=== PATIENT | male | born 1940 | race Caucasian/White ===

== ENCOUNTER 2024-07-29 07:49 | Day surgery (SDC) | payer MEDICARE, SELFPAY ==
[2024-07-17 12:38] VITALS: BMI 28.4
[2024-07-17 13:10] LABS: % Basophils 1.1 % (0-2); % Immature Granulocytes 0.4 % (0-0.5); % Lymphocytes 14.2 % (20.5-51.1); % Monocytes 15.7 % (1.7-9.3); % Neutrophils 66.6 % (42.2-75.2); Absolute Basophils 0.1 10^3/uL (0-0.2); Absolute Eosinophils 0.2 10^3/uL (0-0.7); Absolute Lymphocytes 1.6 10^3/uL (1.2-3.4); Absolute Monocytes 1.7 10^3/uL (0.1-0.6); Absolute Neutrophils 7.3 10^3/uL (1.4-6.5); Hematocrit 43.8 % (39.0-52.0); Hemoglobin 13.9 g/dL (13.0-18.0); Mean Corp Hgb Conc. 31.7 g/dL (33.0-37.0); Mean Corpuscular Volume 91.3 fL (80.0-94.0); Mean Platelet Volume 9.8 fL (7.4-10.4); Nucleated Red Blood Cells % 0 % (-); Platelet Count 209 10^3/uL (130-400); Red Cell Dist. Width 15.9 % (11.5-14.5)
[2024-07-17 13:21] LABS: ALT (SGPT) 19 U/L (0-50); AST (SGOT) 17 U/L (17-59); Albumin 3.8 g/dl (3.5-5.0); Alkaline Phosphatase 72 U/L (38-126); Blood Urea Nitrogen 18 mg/dl (9-20); Calcium 8.8 mg/dl (8.4-10.2); Carbon Dioxide 29 mmol/L (22-30); Chloride 101 mmol/L (98-107); Estimated Creatinine Clearance 72 ml/min; Glucose 103 mg/dl (70-99); Magnesium 2.2 mg/dl (1.6-2.3); Potassium 4.3 mmol/L (3.5-5.1); Sodium 137 mmol/L (135-145); Total Bilirubin 0.8 mg/dl (0.2-1.3); Total Protein 6.3 g/dl (6.3-8.2); eGFR > 60.00
[2024-07-17 13:22] LABS: INR 1.19; PT 15.4 Sec (11.4-14.6)
[2024-07-29] VITALS (18 sets, daily range): BP systolic 92–132; BP diastolic 62–98
[2024-07-29] MEDS: NSS 500 IV (08:23)
[2024-07-29] MEDS: PROSCAR 5 MG PO (08:47)
--- NOTE | 2024-07-29 08:56 | ITS.CL.ABL ---
[facility] - Ablation
Ablation
Procedure Report:
Primary Back Hoe Operator: Dr. Dominic Daley
Procedure Date: 07/29/2024
Patient History:
Patient is a pleasant 84-year-old male with past medical history significant for knee replacement, DVT, multiple myeloma, BPH, asthma, back surgery, paroxysmal atrial fibrillation, paroxysmal atrial flutter.
See H&P for complete details.
Indication:
Symptomatic paroxysmal atrial fibrillation
Symptomatic paroxysmal atrial flutter
Arrhythmia Specific History:
Prior Medical Therapies for Rate and Rhythm Control:
X Beta-avery
[ ] Calcium channel-avery
[ ] Amiodarone
[ ] Dronederone
[ ] Sotalol
[ ] Flecainide
[ ] Dofetilide
X Options limited by bradycardia
[ ] Options limited by comorbid renal disease
Prior Procedural Therapies for AF/AFL:
[ ] Cardioversion
[ ] Pulmonary Vein Isolation
[ ] Posterior Wall Isolation
[ ] Additional lines (Specify)
[ ] Surgical Taveras-MAZE or PVI (Specify)
Procedure Performed:
X AF ablation procedure (02376) - includes LA/CS pacing, trans-septal, 3D mapping, + ICE
[ ] +IV drug (93076)
X +Other Arrhythmia (15223) - Atrial Flutter (CTI RFA)
[ ] +Other AF Line/ablation (42423)
Risks and expected recovery has been explained in detail. Alternative options have been explored, and in a shared-decision making fashion we have decided that this was the most appropriate procedure.
Method:
NPO status confirmed. Grounding pad applied. Defibrillator pads applied. Continuous surface ECG, pulse oximetry, and blood pressure were monitored. Procedure was performed under general anesthesia, with anesthesia services.
Both groins were clipped, prepped with Chloraprep, and draped in sterile fashion. Time out was called. Local anesthesia administered with bupivacaine. The right femoral vein was accessed for catheter placement, using ultrasound guidance (saved to
record), micro-puncture needle/wire, and modified seldinger technique. 3 sheaths were placed. The following catheters were used:
X Tacticath SE (D/F Curve) ablation catheter
X Viewflex 9Fr ICE catheter
X Inquiry decapolar 6Fr diagnostic catheter
[ ] CRD Hex 6Fr
[ ] Arctic Front Advance Cryoballoon ([ ]28mm[ ]23mm)
[ ] Achieve Advance mapping catheter ([ ]15mm[ ]20mm)
X FlexCath Contour 10 Fr with PulseSelect PFA Catheter
X Advisor HD Grid Mapping Catheter, SE
[ ] Acuson AcuNav 8 Fr ICE catheter
[ ]Other: [ ]
Intracardiac ultrasound (ICE) was carefully advanced into the right atrium to guide sheath placement over a J-wire, catheter placement, guide trans-septal puncture, identify potential complications, identify anatomic structures and ensure proper
contact between ablation catheter and tissue.
A multipolar catheter were advanced to the coronary sinus. A mapping / ablation catheter (3.5 mm tip TactiCath D/F SE irrigated ablation catheter through long steerable sheath) was used to record and pace. Three-dimensional electroanatomic mapping
was utilized with careful attention to anatomic landmarks, including the coronary sinus, IVC-RA and SVC-RA junction, tricuspid valve annulus, and region of the His bundle electrogram. Clockwise and counterclockwise trans-isthmus times were
determined. An ablation line was created from the tricuspid annulus to the IVC in the 6:00 position (BEL clock/caudal EAM projection). Power was titrated between 30 and 40 [place] with careful monitoring of impedance, AV conduction, power, and
temperature. Ablation continued until a line was complete from the tricuspid valve annulus to the IVC-RA junction during CS pacing. Clockwise and counterclockwise trans-isthmus times were determined, and RA activation patterns confirmed
bidirectional block.
Next, we turned out attention to the AF Ablation.
Heparin was given prior to trans-septal puncture. Heparin was given to achieve and maintain a target ACT of 300-400 seconds throughout the procedure.
Trans-septal access was performed under ICE guidance. The trans-septal puncture was performed with a SafeSept wire through a Brockenbrough needle assembly through the steerable sheath. The wire was visualized as it entered the LSPV and system
advanced under ICE guidance and fluoroscopy into the LA. The Brockenbrough needle assembly, SafeSept wire and sheath dilator were removed under negative pressure. LA pressure was measured and recorded.
ICE and 3D mapping was performed to identify relevant cardiac structures. A careful 3D map was created to assess for regions of low-voltage and abnormal electrogram signals using HD grid mapping catheter and PulseSelect catheter. Additional mapping
was performed as outlined below.
Prior to ablation, glycopyrrolate was provided. PulseSelect catheter was advanced over J-wire to the ostium of each vein. Pulmonary vein isolation was performed with ostial and antral lesions in a circumferential manner. Contact was visualized via
EAM, ICE, fluoroscopy, and EGM signals. Following completion of ablation lesions, a post-ablation voltage/activation map was performed in sinus rhythm. Entrance and exit block were confirmed for each vein.
Catheter and sheath were removed from the left atrium and post-ablation intracardiac echo evaluation was consistent with pre-ablation with no changes and no pericardial effusion and there is no left atrial thrombus or left ventricle thrombus seen.
Electrophysiology study was performed. No arrhythmias was induced. Reassessment of the CTI ablation line was performed demonstrating widely spaced double potentials and persistent bidirectional block. Hemostasis was obtained with figure of 8 stitch
for each groin and with manual pressure. Protamine was used for reversal.
Estimated Blood Loss
5 mL
Complications
None
Fluoroscopy: 6.0 minutes; 24.35 mGy; DAP 3.12
LA Pressure (mean)
Pre: 4 mmHg
Post: 6 mmHg
Baseline Intervals:
Rhythm: SR
CA: 163 ms
QRS: 86 ms
QT: 387 ms
QTc: 408 ms
Post-Procedure Intervals:
CA: 168 ms
QRS: 87 ms
QT: 447 ms
QTc: 445 ms
AVWB: 360 ms
AERP: 600/270 ms
Recommendations
- Bedrest with straight-leg precautions as ordered
- Anticipate same day discharge if patient meeting clinical metrics
- Resume home medications as indicated
- Change lopressor 12.5 BID to toprol XL 12.5 mg daily
- Ok to resume anticoagulation tonight if patient and groin sites stable
- PPI daily for 30 days
- Plan for follow-up in office as scheduled
Darrick Plaza, DO, FACC, FHRS
Clinical Cardiac Technical Laboratory Asst
cc: Dr Dominic Daley; Dr Dominic Vaughn
[2024-07-29] MEDS: TYLENOL 1000 MG PO (09:17)
[2024-07-29 11:21] LABS: ACT-LR - POC 292 Seconds (116-155)
[2024-07-29 11:38] LABS: ACT-LR - POC 337 Seconds (116-155)
[2024-07-29 12:08] LABS: ACT-LR - POC 347 Seconds (116-155)
[2024-07-29 12:22] LABS: ACT-LR - POC 139 Seconds (116-155)
--- NOTE | 2024-07-29 16:03 | W.PN.UPDATE ---
Update Note
Progress Note Update
Pt seen post PFA. Right groin site without ht/bleeding. OOB ambulating. Post EKG NSR 60s w/inc RBBB as before, no acute changes. Resume eliquis tonight. Pt had been experiencing fatigue and lethargy with metoprolol tartrate 12.5mg BID and decreased
it to once a day on his own with improvement of his symptoms. Will change now to metoprolol succinate 12.5mg daily and can start with first dose tomorrow night. 30 day protonix rx also sent to pharmacy. Followup with Dr. Daley as scheduled. Home
later today if groin site/tele remain stable.
== END 2024-07-29 17:26 | disposition home or self-care (01) ==
LOC: CATH 07:49
PROVIDERS: ATTENDING PHYSICIAN Internal Medicine Cardiovascular Disease; FAMILY PHYSICIAN Internal Medicine; OTHER PHYSICIAN Student in an Organized Health Care Education/Training Program
DX: I48.0 Paroxysmal atrial fibrillation (principal); I48.92 Unspecified atrial flutter; J45.909 Unspecified asthma, uncomplicated; N40.0 Benign prostatic hyperplasia without lower urinary tract symptoms; C90.00 Multiple myeloma not having achieved remission; Z96.659 Presence of unspecified artificial knee joint; Z87.891 Personal history of nicotine dependence; Z79.899 Other long term (current) drug therapy; Z79.01 Long term (current) use of anticoagulants
CPT/HCPCS: C1732; C1894; C1769; C2630; C1892; C1759; C1733; C1766; 36415; 75572; 80053; 83735; 85025; 85347; 85610; 86850; 86900; 86901; 93005; 93655; 93656; Q9967